=== PATIENT | female | born 1980 | race African-American/Black ===

== ENCOUNTER 2016-04-25 09:27 | Emergency (ER) | payer MEDICAID ==
[~2016-04-25] VITALS: Ht 165.1 cm; Wt 64.0 kg
[~2016-04-25 09:27] MED LIST: IBUP600 PO; Z.0.BCPILL PO
[2016-04-25 09:29] VITALS: BP 136/63; PULSE 80; RESP 16; TEMP 98.1; O2SAT 98
[2016-04-25] MEDS ORDERED: SODIUM CHLOR 0.9% 1000 ML INJ 1,000 ML IV SCH (10:14)
[2016-04-25] MEDS ORDERED: SODIUM CHLORIDE 0.9% FLUSH 5 ML FLUSH IVF PRN (10:15)
[2016-04-25] MEDS ORDERED: MORPHINE SULFATE 4 MG/ML INJ IV PUSH ONE (10:15)
--- NOTE | 2016-04-25 10:18 | PD ---
HPI Chief Complaint: Pain: Acute or Chronic Time Seen by Provider: 10:12 Travel History International Travel<30 days: No Contact w/Intl Traveler<30days: No Traveled to known affect area: No History of Present Illness HPI 35-year-old female here for evaluation of right lower quadrant and right thigh pain. The patient reports that she fell down some stairs about a month ago and has been experiencing pain in this area ever since. She reports that she went to [facility] where she received pain medication. History of ovarian cyst removal. She is currently on her menstrual period. No other abdominal surgeries. Pain is severe, constant, worse with movement and palpation. She had nausea and a few episodes of vomiting this morning. PFS Past Medical History Anemia: Yes Asthma: No Blood Disorders: No Anxiety: No Depression: No Heart Rhythm Problems: No Cancer: No Cardiovascular Problems: No High Cholesterol: No Chemotherapy: No Chest Pain: No Congestive Heart Failure: No COPD: No Diabetes: No Diminished Hearing: No Gastrointestinal Disorders: Yes (CHRONIC ABD PAIN) Glaucoma: No Genitourinary: No Hepatitis: No Hiatal Hernia: No Hypertension: Yes Immune Disorder: No Implanted Vascular Access Dvce: No Musculoskeletal: No Neurologic: No Psychiatric: No Reproductive: Yes (OVARIAN CYSTS, POLYCYSTIC OVARIES) Respiratory: No Immunizations Current: No Radiation Therapy: No Sleep Apnea: No Thyroid Disease: No PNEUMOCCOCAL Vaccine (Year): 2 ?: Not LMP: LAST WEEK : 5 Para: 4 Miscarriage: 1 Ectopic : No Ovarian Cysts: Yes (RIGHT OVARIAN CYST REMOVED) Tubal Ligation: Yes (2007) Past Surgical History Body Medical Devices: CYST Gynecologic Surgery: Yes (cervical ablation) Hysterectomy: Yes (PARTIAL) Other Surgery: No Social History Alcohol Use: No Tobacco Use: No Substance Use: Yes (MARIJUANA OCC) Allergies-Medications (Allergen,Severity, Reaction): Coded Allergies: No Known Allergies (Verified , 04/25/16) Reported Meds & Prescriptions Reported Meds & Active Scripts Active No Active Prescriptions or Reported Medications Review of Systems Except as stated in HPI: all other systems reviewed are Neg Physical Exam Narrative GENERAL: Well-developed, well-nourished, moderate distress secondary to pain. SKIN: Warm and dry. No rash. HEAD: Atraumatic. Normocephalic. EYES: Pupils equal and round. No scleral icterus. No injection or drainage. ENT: Mucous membranes pink and moist. NECK: Trachea midline. No JVD. CARDIOVASCULAR: Regular rate and rhythm. RESPIRATORY: No accessory muscle use. Clear to auscultation. Breath sounds equal bilaterally. GASTROINTESTINAL: Abdomen soft, nondistended. Moderate lower quadrant and suprapubic tenderness without peritoneal signs, rest of abdomen is soft and nontender. Normal bowel sounds. ENGROSSER: Exam performed in the presence of female nurse. Normal external genitalia. Normal cervix. Scant blood in vaginal vault coming from cervical os. No CMT. No uterine tenderness. No adnexal masses or tenderness. MUSCULOSKELETAL: No obvious deformities. No clubbing. No cyanosis. No edema. Normal range of motion in right thigh with mild tenderness to right anterior thigh. The rest of her joints and extremities are without deformity, without tenderness, with normal range of motion. NEUROLOGICAL: Awake and alert. No obvious cranial nerve deficits. Motor grossly within normal limits. Normal speech. PSYCHIATRIC: Appropriate mood and affect; insight and judgment normal. Data Data Last Documented VS Vital Signs Date Time Temp Pulse Resp B/P Pulse Ox O2 Delivery O2 Flow Rate FiO2 04/25/16 12:08 70 16 140/88 100 Room Air 04/25/16 09:29 98.1 Orders Beta Hcg (Quant/Titer) (04/25/16 10:14) Complete Blood Count With Diff (04/25/16 10:14) Comprehensive Metabolic Panel (04/25/16 10:14) Lipase (04/25/16 10:14) Prothrombin Time / Inr (Pt) (04/25/16 10:14) Act Partial Throm Time (Ptt) (04/25/16 10:14) Urinalysis - C+S If Indicated (04/25/16 10:14) Ct Abd/Pel W Iv Contrast(Rout) (04/25/16 10:14) Iv Access Insert/Monitor (04/25/16 10:14) Ecg Monitoring (04/25/16 10:14) Oximetry (04/25/16 10:14) Morphine Inj (Morphine Inj) (04/25/16 10:15) Sodium Chlor 0.9% 1000 Ml Inj (Ns 1000 M (04/25/16 10:14) Sodium Chloride 0.9% Flush (Ns Flush) (04/25/16 10:15) Ed Urine Pregnancytest Poc (04/25/16 10:14) Gc And Chlamydia Pcr (04/25/16 10:19) Wet Prep Profile (04/25/16 10:19) Us Pelvis Comp W Doppler (04/25/16 ) Iohexol 350 Inj (Omnipaque 350 Inj) (04/25/16 12:15) Labs Laboratory Tests Test 04/25/16 04/25/16 10:25 12:25 White Blood Count 3.4 TH/MM3 Red Blood Count 4.50 MIL/MM3 Hemoglobin 11.8 GM/DL Hematocrit 35.3 % Mean Corpuscular Volume 78.5 FL Mean Corpuscular Hemoglobin 26.2 PG Mean Corpuscular Hemoglobin 33.4 % Concent Red Cell Distribution Width 13.1 % Platelet Count 290 TH/MM3 Mean Platelet Volume 8.3 FL Neutrophils (%) (Auto) 41.1 % Lymphocytes (%) (Auto) 47.9 % Monocytes (%) (Auto) 9.8 % Eosinophils (%) (Auto) 0.4 % Basophils (%) (Auto) 0.8 % Neutrophils # (Auto) 1.4 TH/MM3 Lymphocytes # (Auto) 1.6 TH/MM3 Monocytes # (Auto) 0.3 TH/MM3 Eosinophils # (Auto) 0.0 TH/MM3 Basophils # (Auto) 0.0 TH/MM3 CBC Comment DIFF FINAL Differential Comment Prothrombin Time 10.7 SEC Prothromb Time International 1.0 RATIO Ratio Activated Partial 26.3 SEC Thromboplast Time Urine Color YELLOW Urine Turbidity HAZY Urine pH 7.0 Urine Specific [place] 1.026 Urine Protein TRACE mg/dL Urine Glucose (UA) NEG mg/dL Urine Ketones NEG mg/dL Urine Occult Blood MOD Urine Nitrite NEG Urine Bilirubin NEG Urine Urobilinogen LESS THAN 2.0 MG/DL Urine Leukocyte Esterase NEG Urine RBC 137 /hpf Urine WBC 4 /hpf Urine Squamous Epithelial 2 /hpf Cells Urine Amorphous Sediment RARE Urine Mucus FEW /lpf Microscopic Urinalysis Comment CULT NOT INDICATED Sodium Level 138 MEQ/L Potassium Level 3.5 MEQ/L Chloride Level 105 MEQ/L Carbon Dioxide Level 22.2 MEQ/L Anion Gap 11 MEQ/L Blood Urea Nitrogen 10 MG/DL Creatinine 0.82 MG/DL Estimat Glomerular Filtration 97 ML/MIN Rate Random Glucose 103 MG/DL Calcium Level 8.8 MG/DL Total Bilirubin 0.4 MG/DL Aspartate Amino Transf 10 U/L (AST/SGOT) Alanine Aminotransferase 15 U/L (ALT/SGPT) Alkaline Phosphatase 77 U/L Total Protein 7.5 GM/DL Albumin 4.0 GM/DL Lipase 78 U/L Human Chorionic Gonadotropin, LESS THAN 1 Quant MIU/ML Clue Cells (Wet Prep) NONE SEEN Vaginal Trichomonas (Wet Prep) NONE SEEN Vaginal Yeast (Wet Prep) NONE SEEN MDM Medical Decision Making Medical Screen Exam Complete: Yes Emergency Medical Condition: Yes Medical Record Reviewed: Yes Differential Diagnosis Appendicitis, colitis, ovarian cyst, ovarian torsion, PID, UTI, cystitis, musculoskeletal pain, , ectopic Narrative Course Initial vital signs show heart rate 80, blood pressure 136/63, pulse ox 98% on room air, oral temp of 98.1F. CBC shows WBC 3.4, hemoglobin 11.8, hematocrit 35.3, platelets 290 CMP is unremarkable. Lipase is 78. Beta hCG is negative. UA shows 137 rbc's, moderate occult blood monoxide suggestive of UTI. The patient is currently on her menstrual period. Wet prep is negative for yeast, negative for clue cells, negative for Trichomonas. Pelvic ultrasound: CONCLUSION: 1. No acute finding is identified to explain the pelvic pain. 2. Questionable 2.2 cm fibroid in the right uterus. However, the uterus is not well-visualized due to the under distention of the urinary bladder. 3. Normal appearance of the ovaries. CT abdomen pelvis: CONCLUSION: No acute finding is identified within the abdomen or pelvis. There is trace free fluid in the pelvis that is nonspecific but likely physiologic. Patient was given a dose of IV morphine and is feeling much better. She is resting comfortably. Her abdominal exam is benign. Pelvic exam is not suggestive of PID. She is stable for discharge home with outpatient follow-up with a primary care physician or a dentist private practice this week. She was informed on when to return to the emergency department. She verbalizes understanding and agreement with plan. Diagnosis Primary Impression: Chronic pelvic pain in female Additional Impression: Uterine fibroid Qualified Code: D25.9 - Uterine leiomyoma, unspecified location Referrals: Manager Of Environmental Services 3 days Primary Care Physician 3 days Additional Instructions: Follow-up with a primary care physician or dentist private practice this week. Return to the emergency room if worsening symptoms or any other concerns. Scripts No Active Prescriptions or Reported Meds Disposition: DISCHARGE HOME Condition: Stable Juarez Molina MD Apr 25, 2016 10:18
[2016-04-25 10:39] VITALS: O2SAT 100
[2016-04-25 10:40] VITALS: BP 153/94; PULSE 70; RESP 17; O2SAT 100
[2016-04-25 10:46] LABS: AUTOMATED NEUTROPHIL # 1.4 TH/MM3 (1.8-7.7); BASOPHIL % 0.8 % (0.0-2.0); EOSINOPHIL % 0.4 % (0.0-4.0); HEMATOCRIT 35.3 % (35.0-46.0); HEMO FLAGS DIFF FINAL; LYMPH % 47.9 % (9.0-44.0); LYMPHOCYTE # 1.6 TH/MM3 (1.0-4.8); MEAN CELL VOLUME 78.5 FL (80.0-100.0); MEAN CORPUSCULAR HEMOGLOBIN 26.2 PG (27.0-34.0); MEAN CORPUSCULAR HGB CONC 33.4 % (32.0-36.0); MONO % 9.8 % (0.0-8.0); NEUT % 41.1 % (16.0-70.0); PLATELET COUNT 290 TH/MM3 (150-450); RED CELL DISTRIBUTION WIDTH 13.1 % (11.6-17.2); WHITE BLOOD COUNT 3.4 TH/MM3 (4.0-11.0)
[2016-04-25 10:57] LABS: APTT (PATIENT) 26.3 SEC (24.3-30.1); PROTHROMBIN TIME - PATIENT 10.7 SEC (9.8-11.6)
[2016-04-25 11:03] LABS: BLOOD, URINE MOD (NEG); COMMENT (UR) CULT NOT INDICATED; CULTURE IF INDICATED CULT NOT INDICATED; GLUCOSE,URINE NEG (NEG); KETONE, URINE NEG (NEG); MUCUS URINE FEW /lpf (OCC); NITRITE,URINE NEG (NEG); SQUAMOUS EPITHELIAL CELL URINE 2 /hpf (0-5); URINE COLOR YELLOW (YELLW/STRAW)
[2016-04-25 11:11] LABS: ANION GAP 11 MEQ/L (5-15); AST (GOT) 10 U/L (15-37); BICARBONATE 22.2 MEQ/L (21.0-32.0); BLOOD UREA NITROGEN 10 MG/DL (7-18); CHLORIDE 105 MEQ/L (98-107); GLOMERULAR FILTRATION RATE 97 ML/MIN (>89); POTASSIUM 3.5 MEQ/L (3.5-5.1); SODIUM (NA) 138 MEQ/L (136-145)
[2016-04-25 11:17] LABS: ALKALINE PHOSPHATASE 77 U/L (45-117); ALT (GPT) 15 U/L (10-53); BETA HCG QUANT LESS THAN 1 MIU/ML (0-5); TOTAL BILIRUBIN ADULT 0.4 MG/DL (0.2-1.0)
[2016-04-25 12:08] VITALS: BP 140/88; PULSE 70; RESP 16; O2SAT 100
--- NOTE | 2016-04-25 12:10 | RADRPT ---
EXAM DATE/TIME: 04/25/2016 11:26 [facility] COMPARISON: US PELVIS - COMPLETE (PARTS RUNNER,NON-PREG), December 03, 2015, 12:27. INDICATIONS : Pelvic pain. MEDICAL HISTORY : Hypertension. Anemia. SURGICAL HISTORY : Tubal ligation. Cervical ablation. ENCOUNTER: Initial ACUITY: > 1 year PAIN SCORE: 3/10 LOCATION: Right pelvis MEASUREMENTS: UTERUS: 9.5 x 5.4 x 5.8 cm ENDOMETRIAL STRIPE: 15 mm RIGHT OVARY: 2.5 x 2.2 x 2.2 cm LEFT OVARY: 2.3 x 1.8 x 1.5 cm FINDINGS: UTERUS: Uterus is retroverted. There is a hypoechoic structure in the right mid uterine body measuring 2.2 cm . This was not visualized previously. RIGHT OVARY: Ovary contains no mass or significant cystic lesion. Small follicles are present. Blood flow is docu mented. LEFT OVARY: Ovary contains no mass or significant cystic lesion. Small follicles are present. Blood flow is docu mented. MISCELLANEOUS: There is trace free fluid in the pelvis. CONCLUSION: 1. No acute finding is identified to explain the pelvic pain. 2. Questionable 2.2 cm fibroid in the right uterus. However, the uterus is not well-visualized due to the under distention of the urinary bladder. 3. Normal appearance of the ovaries. Lacho Watkins MD on April 25, 2016 at 12:06 Board Certified Radiologist. This report was verified electronically.
[2016-04-25] MEDS ORDERED: IOHEXOL 350 MG/ML 10 ML VIAL (for RAD DIAG) IV ONE (12:15)
--- NOTE | 2016-04-25 12:22 | RADRPT ---
EXAM DATE/TIME: 04/25/2016 12:03 [facility] COMPARISON: CT ABDOMEN & PELVIS W CONTRAST, October 21, 2015, 4:35. INDICATIONS : Abdomen pain. IV CONTRAST: 95 cc Omnipaque 350 (iohexol) IV ORAL CONTRAST: No oral contrast ingested. RADIATION DOSE: 4.82 CTDIvol (mGy) MEDICAL HISTORY : Hypertension. SURGICAL HISTORY : Tubal ligation. Hysterectomy.Polycystic ovaries, cerical ablation. ENCOUNTER: Initial ACUITY: 1 day PAIN SCALE: 5/10 LOCATION: Abdomen TECHNIQUE: Volumetric scanning of the abdomen and pelvis was performed. Using automated exposure control and ad justment of the mA and/or kV according to patient size, radiation dose was kept as low as reasonably achievable to obtain optimal diagnostic quality images. FINDINGS: LOWER LUNGS: The visualized lower lungs are clear. LIVER: Homogeneous density without lesion. There is no dilation of the biliary tree. No calcified gallston es. SPLEEN: Normal size without lesion. PANCREAS: Within normal limits. KIDNEYS: Normal in size and shape. There is no mass, stone or hydronephrosis. ADRENAL GLANDS: Within normal limits. VASCULAR: There is no aortic aneurysm. BOWEL/MESENTERY: The stomach, small bowel, and colon demonstrate no acute abnormality. There is no free intraperitone al air. There is trace free fluid in the pelvis. Appendix is normal. ABDOMINAL WALL: Within normal limits. RETROPERITONEUM: There is no lymphadenopathy. BLADDER: No wall thickening or mass. REPRODUCTIVE: Within normal limits. INGUINAL: There is no lymphadenopathy or hernia. MUSCULOSKELETAL: Within normal limits for patient age. CONCLUSION: No acute finding is identified within the abdomen or pelvis. There is trace free fluid in the pelvis that is nonspecific but likely physiologic. Lacho Watkins MD on April 25, 2016 at 12:18 Board Certified Radiologist. This report was verified electronically.
[2016-04-25 13:24] VITALS: BP 141/89
[2016-04-25 17:01] LABS: CHLAMYDIA PCR NOT DETECTED (NOT DETECT); NEISSERIA PCR NOT DETECTED (NOT DETECT)
[2016-04-25] MEDS ORDERED: CYCL1TAB29 PO (21:08)
[2016-04-25] MEDS ORDERED: IBUP800T23 PO (21:08)
== END 2016-04-25 13:25 | disposition home or self-care (01) ==
LOC: NEPB 09:27 → NEPC 13:25
DX: R10.2 Pelvic and perineal pain (principal); G89.29 Other chronic pain; D25.9 Leiomyoma of uterus, unspecified; I10 Essential (primary) hypertension; Z91.81 History of falling
CPT/HCPCS: 74177; 76856; 80053; 81001; 83690; 84702; 84703; 85025; 85610; 85730; 87210; 87491; 87591; 93975; 96361; 96374; 99284; J2270; J7030; Q9967

== ENCOUNTER 2016-04-25 19:33 | Emergency (ER) | payer MEDICAID ==
[~2016-04-25] VITALS: Ht 165.1 cm; Wt 64.0 kg
[2016-04-25 19:34] VITALS: BP 179/89; PULSE 68; RESP 16; TEMP 98; O2SAT 100
[2016-04-25 19:57] VITALS: BP 170/106; PULSE 82; RESP 18; O2SAT 100
[2016-04-25] MEDS ORDERED: KETOROLAC TROMETHAMINE 30 MG/ML (IVP) VIAL IV PUSH ONE (20:15)
[2016-04-25] MEDS ORDERED: ORPHENADRINE INJ 60 MG/2 ML AMP IV ONE (20:15)
--- NOTE | 2016-04-25 20:25 | PD ---
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 Patient was in the emergency department earlier today and had a full workup performed. She states that she was not given any prescription for pain medication at home and has presented back to the emergency department for the pain. She states her pain is a 10 out of 10 described as aching and shooting. She denies any injury or trauma. She denies any new complaints. PFSH Past Medical History Anemia: Yes Asthma: No Blood Disorders: No Anxiety: No Depression: No Heart Rhythm Problems: No Cancer: No Cardiovascular Problems: No High Cholesterol: No Chemotherapy: No Chest Pain: No Congestive Heart Failure: No COPD: No Diabetes: No Diminished Hearing: No Gastrointestinal Disorders: Yes (CHRONIC ABD PAIN) Glaucoma: No Genitourinary: No Hepatitis: No Hiatal Hernia: No Hypertension: Yes Immune Disorder: No Implanted Vascular Access Dvce: No Musculoskeletal: No Neurologic: No Psychiatric: No Reproductive: Yes (OVARIAN CYSTS, POLYCYSTIC OVARIES) Respiratory: No Immunizations Current: No Radiation Therapy: No Sleep Apnea: No Thyroid Disease: No PNEUMOCCOCAL Vaccine (Year): 2 ?: Not LMP: 04/25/16 : 5 Para: 4 Miscarriage: 1 Ectopic : No Ovarian Cysts: Yes (RIGHT OVARIAN CYST REMOVED) Tubal Ligation: Yes Past Surgical History Body Medical Devices: CYST Gynecologic Surgery: Yes (cervical ablation) Hysterectomy: Yes (PARTIAL) Other Surgery: No Social History Alcohol Use: No Tobacco Use: No Substance Use: Yes (MARIJUANA OCC) Allergies-Medications (Allergen,Severity, Reaction): Coded Allergies: No Known Allergies (Verified , 04/25/16) Reported Meds & Prescriptions Reported Meds & Active Scripts Active No Active Prescriptions or Reported Medications Review of Systems Except as stated in HPI: all other systems reviewed are Neg Musculoskeletal: Positive: Myalgias, Cramping, Pain Physical Exam Narrative GENERAL: Well-developed, well-nourished, alert female. Appears uncomfortable, in no acute distress. SKIN: Warm and dry. No rash or obvious lesions. HEAD: Atraumatic. Normocephalic. EYES: Pupils equal and round. No scleral icterus. No injection or drainage. ENT: No nasal bleeding or discharge. Mucous membranes pink and moist. NECK: Trachea midline. No JVD. CARDIOVASCULAR: Regular rate and rhythm. No murmur appreciated. RESPIRATORY: No accessory muscle use. Clear to auscultation. Breath sounds equal bilaterally. GASTROINTESTINAL: Abdomen soft, non-tender, nondistended. Hepatic and splenic margins not palpable. MUSCULOSKELETAL: No obvious deformities. No clubbing. No cyanosis. No edema. Tender to palpation in right upper thigh/right groin, no edema, erythema noted. Full range of motion in all 4 extremities. 5/5 muscle strength in bilateral lower extremities. Patient is neurovascularly intact. NEUROLOGICAL: Awake and alert. No obvious cranial nerve deficits. Motor grossly within normal limits. Normal speech. PSYCHIATRIC: Appropriate mood and affect; insight and judgment normal. Data Data Last Documented VS Vital Signs Date Time Temp Pulse Resp B/P Pulse Ox O2 Delivery O2 Flow Rate FiO2 04/25/16 19:57 82 18 170/106 100 Room Air 04/25/16 19:34 98.0 Orders Ketorolac Inj (Toradol Inj) (04/25/16 20:15) Orphenadrine Inj (Norflex Inj) (04/25/16 20:15) Ondansetron Inj (Zofran Inj) (04/25/16 20:45) MDM Medical Decision Making Medical Screen Exam Complete: Yes Emergency Medical Condition: Yes Medical Record Reviewed: Yes Interpretation(s) Vital Signs Date Time Temp Pulse Resp B/P Pulse Ox O2 Delivery O2 Flow Rate FiO2 04/25/16 19:57 82 18 170/106 100 Room Air 04/25/16 19:34 98.0 68 16 179/89 100 Differential Diagnosis Muscle strain versus spasm versus discogenic pain versus other Narrative Course Patient is a 35-year-old female presenting to the emergency department for evaluation of right groin pain. Patient was seen and evaluated in the emergency department earlier today. She had a CT of the abdomen and pelvis which was negative, pelvic ultrasound showed a questionable 2.2 cm fibroid in the right uterus, the ovaries appeared normal. CBC was unremarkable Chemistry was unremarkable Urinalysis is unremarkable, did show moderate occult blood however patient is currently menstruating. Chlamydia and gonorrhea were both negative, wet prep was negative for clue cells , Trichomonas, yeast. Patient was given Toradol and Norflex now, will reassess. Patient is encouraged to follow-up with her primary doctor. She is encouraged to return to emergency department for any new or worsening symptoms. Patient was reassured at this time that there was no clinical findings to support her pain. She does appear to have pain that seems musculoskeletal in nature, cramping. She is encouraged to apply warm moist heat to the affected area, continue range of motion exercises, and follow up with her primary doctor. Patient is stable for discharge. Diagnosis Primary Impression: Right groin pain Additional Impression: Muscle ache of extremity Referrals: Primary Care Physician Patient Instructions: General Instructions, Groin Pain (ED), Muscle Spasm (ED) , Muscle Strain (GEN) Additional Instructions: Follow-up with your primary doctor Continue range of motion exercises, apply warm heat to the effected area, avoid bed rest Take medications as directed Return to emergency department for any new or worsening symptoms Med/Other Pt SpecificInfo: Prescription(s) given Scripts Cyclobenzaprine (Flexeril)10 Mg Tab10 Mg PO TID PRN (MUSCLE SPASM) 10 Days Ref 0 Prov:Nita Sunshine 04/25/16 Ibuprofen 800 Mg Odi821 Mg PO Q6HR PRN (PAIN) #40 TAB Ref 0 Prov:Nita Sunshine 04/25/16 Disposition: 01 DISCHARGE HOME Condition: Stable Nita Sunshine Apr 25, 2016 20:25
[2016-04-25] MEDS ORDERED: ONDANSETRON HCL 4 MG/2 ML VIAL IV PUSH ONE (20:45)
[2016-04-25] MEDS ORDERED: CYCL1TAB29 PO (21:08)
[2016-04-25] MEDS ORDERED: IBUP800T23 PO (21:08)
== END 2016-04-25 21:40 | disposition home or self-care (01) ==
LOC: NEPE 19:33
DX: R10.31 Right lower quadrant pain (principal); M79.1 Myalgia; M79.604 Pain in right leg; I10 Essential (primary) hypertension
CPT/HCPCS: 96374; 96375; 99283; J1885; J2360; J2405

== ENCOUNTER 2016-04-27 13:13 | Emergency (ER) | payer MEDICAID ==
[~2016-04-27 13:13] MED LIST changes: +CYCL1TAB29 PO; -IBUP600 PO; +IBUP800T23 PO; -Z.0.BCPILL PO
[2016-04-27 13:42] VITALS: BP 176/108; PULSE 24; RESP 24; TEMP 98.1; O2SAT 94
== END 2016-04-27 15:24 | disposition left against medical advice (07) ==
LOC: NETRI 13:13
DX: M54.9 Dorsalgia, unspecified (principal)
CPT/HCPCS: 99281; 99283

== ENCOUNTER 2016-08-16 07:12 | Emergency (ER) | payer MEDICAID ==
[2016-08-16 07:14] VITALS: BP 162/99; PULSE 80; RESP 28; TEMP 97.7; O2SAT 98
[2016-08-16] MEDS ORDERED: SODIUM CHLOR 0.9% 1000 ML INJ 1,000 ML IV ONE (07:25)
--- NOTE | 2016-08-16 07:28 | PD ---
HPI Chief Complaint: Flank/Kidney Pain Time Seen by Provider: 07:25 Travel History International Travel<30 days: No Contact w/Intl Traveler<30days: No Traveled to known affect area: No History of Present Illness HPI c/o sharp, rt flank to rlq area pain, 9/10, onset since last night, got worse over last 2hrs, per patient she has had a "uterine ablation/tubal ligation and a partial hyst so i am NOT "...no alleviating/aggravating factors PFSH Past Medical History Anemia: Yes Asthma: No Blood Disorders: No Anxiety: No Depression: No Heart Rhythm Problems: No Cancer: No Cardiovascular Problems: No High Cholesterol: No Chemotherapy: No Chest Pain: No Congestive Heart Failure: No COPD: No Diabetes: No Diminished Hearing: No Gastrointestinal Disorders: Yes (CHRONIC ABD PAIN) Glaucoma: No Genitourinary: No Hepatitis: No Hiatal Hernia: No Hypertension: Yes Immune Disorder: No Implanted Vascular Access Dvce: No Musculoskeletal: No Neurologic: No Psychiatric: No Reproductive: Yes (OVARIAN CYSTS, POLYCYSTIC OVARIES) Respiratory: No Immunizations Current: No Radiation Therapy: No Sleep Apnea: No Thyroid Disease: No PNEUMOCCOCAL Vaccine (Year): 2 ?: Not : 5 Para: 4 Miscarriage: 1 Ectopic : No Ovarian Cysts: Yes (RIGHT OVARIAN CYST REMOVED) Tubal Ligation: Yes Past Surgical History Body Medical Devices: CYST Gynecologic Surgery: Yes (cervical ablation) Hysterectomy: Yes Other Surgery: No Social History Alcohol Use: No Tobacco Use: No Substance Use: Yes (MARIJUANA OCC) Allergies-Medications (Allergen,Severity, Reaction): Coded Allergies: No Known Allergies (Verified , 04/25/16) Reported Meds & Prescriptions Reported Meds & Active Scripts Active No Active Prescriptions or Reported Medications Review of Systems Except as stated in HPI: all other systems reviewed are Neg Gastrointestinal: Positive: Nausea, Abdominal Pain Genitourinary: Positive: Flank Pain Physical Exam Narrative GENERAL: SKIN: Warm and dry. HEAD: Atraumatic. Normocephalic. EYES: Pupils equal and round. No scleral icterus. No injection or drainage. ENT: No nasal bleeding or discharge. Mucous membranes pink and moist. NECK: Trachea midline. No JVD. CARDIOVASCULAR: Regular rate and rhythm. RESPIRATORY: No accessory muscle use. Clear to auscultation. Breath sounds equal bilaterally. GASTROINTESTINAL: Abdomen soft, non-tender, nondistended. Hepatic and splenic margins not palpable. MUSCULOSKELETAL: Extremities without clubbing, cyanosis, or edema. No obvious deformities. NEUROLOGICAL: Awake and alert. No obvious cranial nerve deficits. Motor grossly within normal limits. Five out of 5 muscle strength in the arms and legs. Normal speech. PSYCHIATRIC: Appropriate mood and affect; insight and judgment normal. Data Data Last Documented VS Vital Signs Date Time Temp Pulse Resp B/P Pulse Ox O2 Delivery O2 Flow Rate FiO2 08/16/16 07:14 97.7 80 28 162/99 98 Orders Complete Blood Count With Diff (08/16/16 07:25) Comprehensive Metabolic Panel (08/16/16 07:25) Urinalysis - C+S If Indicated (08/16/16 07:25) Ct Abd/Pel W/O Iv Contrast (08/16/16 07:25) Ecg Monitoring (08/16/16 07:25) Iv Access Insert/Monitor (08/16/16 07:25) Ketorolac Inj (Toradol Inj) (08/16/16 07:30) Sodium Chloride 0.9% Flush (Ns Flush) (08/16/16 07:30) Sodium Chlor 0.9% 1000 Ml Inj (Ns 1000 M (08/16/16 07:25) Ondansetron Inj (Zofran Inj) (08/16/16 07:45) Hydromorphone Pf Inj (Dilaudid Pf Inj) (08/16/16 08:00) Labs Laboratory Tests Test 08/16/16 08/16/16 07:52 08:40 White Blood Count 6.0 TH/MM3 Red Blood Count 4.66 MIL/MM3 Hemoglobin 11.8 GM/DL Hematocrit 36.4 % Mean Corpuscular Volume 78.1 FL Mean Corpuscular Hemoglobin 25.4 PG Mean Corpuscular Hemoglobin 32.5 % Concent Red Cell Distribution Width 13.3 % Platelet Count 254 TH/MM3 Mean Platelet Volume 8.8 FL Neutrophils (%) (Auto) 71.1 % Lymphocytes (%) (Auto) 22.8 % Monocytes (%) (Auto) 5.7 % Eosinophils (%) (Auto) 0.1 % Basophils (%) (Auto) 0.3 % Neutrophils # (Auto) 4.2 TH/MM3 Lymphocytes # (Auto) 1.4 TH/MM3 Monocytes # (Auto) 0.3 TH/MM3 Eosinophils # (Auto) 0.0 TH/MM3 Basophils # (Auto) 0.0 TH/MM3 CBC Comment DIFF FINAL Differential Comment Sodium Level 137 MEQ/L Potassium Level 3.4 MEQ/L Chloride Level 104 MEQ/L Carbon Dioxide Level 21.6 MEQ/L Anion Gap 11 MEQ/L Blood Urea Nitrogen 18 MG/DL Creatinine 0.79 MG/DL Estimat Glomerular Filtration 101 ML/MIN Rate Random Glucose 165 MG/DL Calcium Level 8.9 MG/DL Total Bilirubin 0.4 MG/DL Aspartate Amino Transf 15 U/L (AST/SGOT) Alanine Aminotransferase 18 U/L (ALT/SGPT) Alkaline Phosphatase 70 U/L Total Protein 7.4 GM/DL Albumin 4.0 GM/DL Urine Color YELLOW Urine Turbidity HAZY Urine pH 7.0 Urine Specific [place] 1.028 Urine Protein TRACE mg/dL Urine Glucose (UA) NEG mg/dL Urine Ketones NEG mg/dL Urine Occult Blood SMALL Urine Nitrite NEG Urine Bilirubin NEG Urine Urobilinogen LESS THAN 2.0 MG/DL Urine Leukocyte Esterase NEG Urine RBC 22 /hpf Urine WBC 1 /hpf Urine Squamous Epithelial <1 /hpf Cells Urine Amorphous Sediment OCC Urine Mucus FEW /lpf Microscopic Urinalysis Comment CULT NOT INDICATED MDM Medical Decision Making Medical Screen Exam Complete: Yes Emergency Medical Condition: Yes Medical Record Reviewed: Yes Differential Diagnosis renal stone v appy v ectopic Narrative Course CT IS NEG FOR RENAL STONE NOR APPY, NOR COLITIS PRESENT....UA C/W POOR COLLECTION TECHNIQUE, BUT NO UTI Diagnosis Primary Impression: CHRONIC ABDOMINAL PAIN (POSSIBLE ENDOMETRIOSIS) Patient Instructions: Endometriosis (ED), General Instructions, Narcotic given in the ED Med/Other Pt SpecificInfo: Prescription(s) given Scripts Ondansetron Odt (Zofran Odt)4 Mg Tab4 Mg SL Q6HR PRN (Nausea/Vomiting) #12 TAB Prov:Antonio Lewis MD 08/16/16 Tramadol (Ultram)50 Mg Tab50 Mg PO Q4H PRN (PAIN) #28 TAB Prov:Antonio Lewis MD 08/16/16 Disposition: 01 DISCHARGE HOME Condition: Stable Antonio Lewis MD Aug 16, 2016 07:28
[2016-08-16] MEDS ORDERED: KETOROLAC TROMETHAMINE 30 MG/ML (IVP) VIAL IVP ONE (07:30)
[2016-08-16] MEDS ORDERED: SODIUM CHLORIDE 0.9% FLUSH 10 ML FLUSH IVF PRN (07:30)
[2016-08-16] MEDS ORDERED: ONDANSETRON HCL 4 MG/2 ML VIAL IV PUSH ONE (07:45)
[2016-08-16] MEDS ORDERED: HYDROmorphone HCL PF 1 MG/ML VIAL IV PUSH ONE (08:00)
--- NOTE | 2016-08-16 08:01 | RADRPT ---
EXAM DATE/TIME: 08/16/2016 07:47 [facility] COMPARISON: CT ABDOMEN & PELVIS W CONTRAST, April 25, 2016, 12:03. INDICATIONS : Right flank pain today. ORAL CONTRAST: No oral contrast ingested. RADIATION DOSE: 3.94 CTDIvol (mGy) MEDICAL HISTORY : Hypertension. ovarian cyst SURGICAL HISTORY : Hysterectomy. ENCOUNTER: Initial ACUITY: 1 day PAIN SCALE: 8/10 LOCATION: Right flank TECHNIQUE: Volumetric scanning of the abdomen and pelvis was performed. Using automated exposure control and ad justment of the mA and/or kV according to patient size, radiation dose was kept as low as reasonably achievable to obtain optimal diagnostic quality images. DICOM format image data is available electro nically for review and comparison. The lack of IV contrast limits the diagnosis for certain organ pat hology. FINDINGS: LOWER LUNGS: The visualized lower lungs are clear. LIVER: Homogeneous density without lesion. There is no dilation of the biliary tree. No calcified gallston es. SPLEEN: Normal size without lesion. PANCREAS: Within normal limits. KIDNEYS: Normal in size and shape. There is no mass, stone, or hydronephrosis. ADRENAL GLANDS: Within normal limits. VASCULAR: There is no aortic aneurysm. BOWEL/MESENTERY: The stomach, small bowel, and colon demonstrate no acute abnormality. There is no free intraperitone al air or fluid. ABDOMINAL WALL: Within normal limits. RETROPERITONEUM: There is no lymphadenopathy. BLADDER: No wall thickening or mass. Tiny calcification in the anterior urinary bladder wall. Stable compared to the prior study. REPRODUCTIVE: Within normal limits. There is a trace of fluid in the cul-de-sac. No significant change compared to the prior exam. INGUINAL: There is no lymphadenopathy or hernia. MUSCULOSKELETAL: Within normal limits for patient age. CONCLUSION: 1. No calcified renal stones or hydronephrosis. 2. Trace of fluid in the cul-de-sac. 3. No significant change compared to the prior exam. Chepe Lopez MD on August 16, 2016 at 7:55 Board Certified Radiologist. This report was verified electronically.
[2016-08-16 08:06] LABS: AUTOMATED NEUTROPHIL # 4.2 TH/MM3 (1.8-7.7); BASOPHIL % 0.3 % (0.0-2.0); EOSINOPHIL % 0.1 % (0.0-4.0); HEMATOCRIT 36.4 % (35.0-46.0); HEMO FLAGS DIFF FINAL; LYMPH % 22.8 % (9.0-44.0); LYMPHOCYTE # 1.4 TH/MM3 (1.0-4.8); MEAN CELL VOLUME 78.1 FL (80.0-100.0); MEAN CORPUSCULAR HEMOGLOBIN 25.4 PG (27.0-34.0); MEAN CORPUSCULAR HGB CONC 32.5 % (32.0-36.0); MONO % 5.7 % (0.0-8.0); NEUT % 71.1 % (16.0-70.0); PLATELET COUNT 254 TH/MM3 (150-450); RED BLOOD COUNT 4.66 MIL/MM3 (4.00-5.30); RED CELL DISTRIBUTION WIDTH 13.3 % (11.6-17.2)
[2016-08-16 08:20] LABS: ANION GAP 11 MEQ/L (5-15); AST (GOT) 15 U/L (15-37); BICARBONATE 21.6 MEQ/L (21.0-32.0); BLOOD UREA NITROGEN 18 MG/DL (7-18); CHLORIDE 104 MEQ/L (98-107); GLOMERULAR FILTRATION RATE 101 ML/MIN (>89); POTASSIUM 3.4 MEQ/L (3.5-5.1); SODIUM (NA) 137 MEQ/L (136-145)
[2016-08-16 08:21] LABS: ALT (GPT) 18 U/L (10-53)
[2016-08-16 08:23] LABS: ALKALINE PHOSPHATASE 70 U/L (45-117); TOTAL BILIRUBIN ADULT 0.4 MG/DL (0.2-1.0)
[2016-08-16 09:31] LABS: BLOOD, URINE SMALL (NEG); COMMENT (UR) CULT NOT INDICATED; CULTURE IF INDICATED CULT NOT INDICATED; GLUCOSE,URINE NEG (NEG); KETONE, URINE NEG (NEG); MUCUS URINE FEW /lpf (OCC); NITRITE,URINE NEG (NEG); SQUAMOUS EPITHELIAL CELL URINE <1 /hpf (0-5); URINE COLOR YELLOW (YELLW/STRAW)
[2016-08-16] MEDS ORDERED: ULTR50TA5 PO (09:45)
[2016-08-16] MEDS ORDERED: ZOFR4TAB3 SL (09:45)
== END 2016-08-16 10:27 | disposition home or self-care (01) ==
LOC: NEPC 07:12
DX: R10.9 Unspecified abdominal pain (principal); G89.29 Other chronic pain; I10 Essential (primary) hypertension; Z86.2 Personal history of diseases of the blood and blood-forming organs and certain disorders involving the immune mechanism; Z87.19 Personal history of other diseases of the digestive system; Z87.42 Personal history of other diseases of the female genital tract
CPT/HCPCS: 74176; 80053; 81001; 85025; 96361; 96374; 96375; 99285; J1170; J1885; J2405; J7030

== ENCOUNTER 2017-01-06 10:06 | Emergency (ER) | payer MEDICAID ==
[~2017-01-06] VITALS: Ht 165.1 cm; Wt 62.0 kg
[~2017-01-06 10:06] MED LIST changes: -CYCL1TAB29 PO; -IBUP800T23 PO; +TRAM50 PO; +ZOFR4TAB3 SL
[2017-01-06 10:10] VITALS: BP 153/90; PULSE 80; RESP 16; TEMP 97.8; O2SAT 100
--- NOTE | 2017-01-06 10:40 | PD ---
HPI Chief Complaint: Chest Pain Time Seen by Provider: 10:34 Travel History International Travel<30 days: No Contact w/Intl Traveler<30days: No Traveled to known affect area: No History of Present Illness HPI Patient is a 36-year-old female with a history of high blood pressure and chronic vaginal bleeding presents emergency department for evaluation of syncopal episode. Patient states she was at work and is very stressed at work because her colleagues often argue with her, she states that she was in an argument with one of her coworkers today and passed out 4 times. She states she 's been having pain on the right side of her chest as well as underneath her shoulder blade since this happened. States she's been bleeding for 4 months even know she had an ablation. Denies any shortness of breath nausea vomiting headaches neck pain abdominal pain pelvic pain. Denies history of congestive heart failure. Symptoms are moderate, intermittent. PFSH Past Medical History Anemia: Yes Asthma: No Blood Disorders: No Anxiety: No Depression: No Heart Rhythm Problems: No Cancer: No Cardiovascular Problems: No High Cholesterol: No Chemotherapy: No Chest Pain: No Congestive Heart Failure: No COPD: No Diabetes: No Diminished Hearing: No Gastrointestinal Disorders: Yes (CHRONIC ABD PAIN) Glaucoma: No Genitourinary: No Hepatitis: No Hiatal Hernia: No Hypertension: Yes Immune Disorder: No Implanted Vascular Access Dvce: No Musculoskeletal: No Neurologic: No Psychiatric: No Reproductive: Yes (OVARIAN CYSTS, POLYCYSTIC OVARIES) Respiratory: No Immunizations Current: No Radiation Therapy: No Sleep Apnea: No Thyroid Disease: No Tetanus Vaccination: > 5 Years Influenza Vaccination: Yes PNEUMOCCOCAL Vaccine (Year): 2 ?: Not LMP: 01/06/17 : 5 Para: 4 Miscarriage: 1 Ectopic : No Ovarian Cysts: Yes (RIGHT OVARIAN CYST REMOVED) Tubal Ligation: Yes Past Surgical History Body Medical Devices: CYST Gynecologic Surgery: Yes (cervical ablation) Hysterectomy: Yes (partial) Other Surgery: No Social History Alcohol Use: No Tobacco Use: Yes Substance Use: Yes (MARIJUANA OCC) Allergies-Medications (Allergen,Severity, Reaction): Coded Allergies: No Known Allergies (Verified Adverse Reaction, Unknown, 01/06/17) Reported Meds & Prescriptions Reported Meds & Active Scripts Active Flexeril (Cyclobenzaprine HCl) 10 Mg Tab 10 Mg PO TID Review of Systems Except as stated in HPI: all other systems reviewed are Neg Physical Exam Narrative GENERAL: Well-developed well-nourished, quite the right side of her chest. SKIN: Focused skin assessment warm/dry. HEAD: Atraumatic. Normocephalic. EYES: Pupils equal and round. No scleral icterus. No injection or drainage. ENT: No nasal bleeding or discharge. Mucous membranes pink and moist. NECK: Trachea midline. No JVD. CARDIOVASCULAR: Regular rate and rhythm. No murmur appreciated. 2+ bilateral equal pulses in all 4 extremities. RESPIRATORY: No accessory muscle use. Clear to auscultation. Breath sounds equal bilaterally. GASTROINTESTINAL: Abdomen soft, non-tender, nondistended. Hepatic and splenic margins not palpable. MUSCULOSKELETAL: No obvious deformities. No clubbing. No cyanosis. No edema. Right shoulder has minimal tenderness over the scapula, no bony tenderness, full range of motion was demonstrated of the right upper extremity with tenderness in abduction of the shoulder. Pulse motor and sensory intact distally in all 4 extremities.. NEUROLOGICAL: Awake and alert. No obvious cranial nerve deficits. Motor grossly within normal limits. Normal speech. PSYCHIATRIC: Appropriate mood and affect; insight and judgment normal. Data Data Last Documented VS Orders Orders Basic Metabolic Panel (Bmp) (01/06/17 10:52) Ckmb (Isoenzyme) Profile (01/06/17 10:52) Complete Blood Count With Diff (01/06/17 10:52) Prothrombin Time / Inr (Pt) (01/06/17 10:52) Act Partial Throm Time (Ptt) (01/06/17 10:52) Troponin I (01/06/17 10:52) Chest, Single Ap (01/06/17 10:52) Ecg Monitoring (01/06/17 10:52) Iv Access Insert/Monitor (01/06/17 10:52) Oximetry (01/06/17 10:52) Oxygen Administration (01/06/17 10:52) Sodium Chloride 0.9% Flush (Ns Flush) (01/06/17 11:00) Ed Urine Pregnancytest Poc (01/06/17 10:52) CKMB (01/06/17 10:55) CKMB% (01/06/17 10:55) Electrocardiogram (01/06/17 10:21) Ed Discharge Order (01/06/17 12:27) Labs Laboratory Tests Test 01/06/17 10:55 White Blood Count 3.5 TH/MM3 Red Blood Count 4.76 MIL/MM3 Hemoglobin 12.4 GM/DL Hematocrit 38.4 % Mean Corpuscular Volume 80.6 FL Mean Corpuscular Hemoglobin 26.1 PG Mean Corpuscular Hemoglobin Concent 32.4 % Red Cell Distribution Width 13.2 % Platelet Count 262 TH/MM3 Mean Platelet Volume 8.7 FL Neutrophils (%) (Auto) 40.1 % Lymphocytes (%) (Auto) 49.2 % Monocytes (%) (Auto) 9.4 % Eosinophils (%) (Auto) 0.6 % Basophils (%) (Auto) 0.7 % Neutrophils # (Auto) 1.4 TH/MM3 Lymphocytes # (Auto) 1.7 TH/MM3 Monocytes # (Auto) 0.3 TH/MM3 Eosinophils # (Auto) 0.0 TH/MM3 Basophils # (Auto) 0.0 TH/MM3 CBC Comment DIFF FINAL Differential Comment Prothrombin Time 10.7 SEC Prothromb Time International Ratio 1.0 RATIO Activated Partial Thromboplast Time 25.7 SEC Blood Urea Nitrogen 16 MG/DL Creatinine 0.85 MG/DL Random Glucose 93 MG/DL Calcium Level 9.2 MG/DL Sodium Level 138 MEQ/L Potassium Level 3.8 MEQ/L Chloride Level 108 MEQ/L Carbon Dioxide Level 21.0 MEQ/L Anion Gap 9 MEQ/L Estimat Glomerular Filtration Rate 92 ML/MIN Total Creatine Kinase 175 U/L Creatine Kinase MB 1.3 NG/ML Troponin I LESS THAN 0.02 NG/ML MDM Medical Decision Making Medical Screen Exam Complete: Yes Emergency Medical Condition: Yes Differential Diagnosis ACS unlikely, stress reaction, syncopal episode, anemia. Narrative Course Patient roomed in emergency department after a syncopal episode, complaining of right-sided chest pain which is distractible from. Basic workup is negative here in emergency department, she seems very low risk for ACS or sinister cause of her syncopal episode today. Discussed need follow-up with a primary care physician or the [facility]. Discussed return to ED criteria. She stable for discharge. Diagnosis Primary Impression: Syncope Additional Impression: Right shoulder strain Departure Forms: Tests/Procedures, Work Release Enter return to work date: Jan 10, 2017 Additional Instructions: Ibuprofen 200mg orally every 6 hours for 5 days. Ice 20 minutes at a time for at least 3 times/day. Med/Other Pt SpecificInfo: Prescription(s) given Scripts Cyclobenzaprine (Flexeril) 10 Mg Tab 10 MG PO TID for Muscle Spasm, #20 TAB 0 Refills Prov: Jose A Moore MD 01/06/17 Disposition: 01 DISCHARGE HOME Condition: Stable Jose A Moore MD Jan 06, 2017 10:40
[2017-01-06 10:56] VITALS: RESP 18; O2SAT 98
[2017-01-06] MEDS ORDERED: SODIUM CHLORIDE 0.9% FLUSH 10 ML FLUSH IVF PRN (11:00)
[2017-01-06 11:10] VITALS: BP 148/85; PULSE 68; RESP 17; TEMP 97.8; O2SAT 99
[2017-01-06 11:12] LABS: AUTOMATED NEUTROPHIL # 1.4 TH/MM3 (1.8-7.7); BASOPHIL % 0.7 % (0.0-2.0); EOSINOPHIL % 0.6 % (0.0-4.0); HEMATOCRIT 38.4 % (35.0-46.0); HEMO FLAGS DIFF FINAL; LYMPH % 49.2 % (9.0-44.0); LYMPHOCYTE # 1.7 TH/MM3 (1.0-4.8); MEAN CELL VOLUME 80.6 FL (80.0-100.0); MEAN CORPUSCULAR HEMOGLOBIN 26.1 PG (27.0-34.0); MEAN CORPUSCULAR HGB CONC 32.4 % (32.0-36.0); MONO % 9.4 % (0.0-8.0); NEUT % 40.1 % (16.0-70.0); PLATELET COUNT 262 TH/MM3 (150-450); RED BLOOD COUNT 4.76 MIL/MM3 (4.00-5.30); RED CELL DISTRIBUTION WIDTH 13.2 % (11.6-17.2); WHITE BLOOD COUNT 3.5 TH/MM3 (4.0-11.0)
[2017-01-06 11:21] LABS: APTT (PATIENT) 25.7 SEC (24.3-30.1); PROTHROMBIN TIME - PATIENT 10.7 SEC (9.8-11.6)
[2017-01-06 11:30] LABS: ANION GAP 9 MEQ/L (5-15); BLOOD UREA NITROGEN 16 MG/DL (7-18); CHLORIDE 108 MEQ/L (98-107); GLOMERULAR FILTRATION RATE 92 ML/MIN (>89); POTASSIUM 3.8 MEQ/L (3.5-5.1); SODIUM (NA) 138 MEQ/L (136-145)
[2017-01-06 11:34] LABS: CREATINE KINASE 175 U/L (26-192)
--- NOTE | 2017-01-06 11:34 | RADRPT ---
EXAM DATE/TIME: 01/06/2017 11:18 [facility] COMPARISON: No previous studies available for comparison. INDICATIONS : Chest pain. Patient states she fainted. MEDICAL HISTORY : Hypertension. SURGICAL HISTORY : Hysterectomy. ENCOUNTER: Initial ACUITY: 1 day PAIN SCORE: 0/10 LOCATION: Bilateral chest FINDINGS: A single view of the chest demonstrates the lungs to be symmetrically aerated without evidence of mas s, infiltrate or effusion. The cardiomediastinal contours are unremarkable. Osseous structures are intact. CONCLUSION: Normal examination. Alden Perdue Jr., MD on January 06, 2017 at 11:32 Board Certified Radiologist. This report was verified electronically.
[2017-01-06 11:47] LABS: CKMB 1.3 NG/ML (0.5-3.6)
[2017-01-06] MEDS ORDERED: CYCL10TA PO (12:25)
[2017-01-06 12:50] VITALS: BP 130/81; PULSE 76; RESP 16; TEMP 97.8; O2SAT 99
--- NOTE | 2017-01-06 18:19 | EKG ---
Date Performed: 01/06/2017 Time Performed: 10:21:04 PTAGE: 36 years EKG: Sinus rhythm NORMAL ECG NO PREVIOUS TRACING DOCTOR: Radha Lee Interpretating Date/Time 01/06/2017 18:17:29
== END 2017-01-06 13:00 | disposition home or self-care (01) ==
LOC: NEPE 10:06
DX: R55 Syncope and collapse (principal); S46.911A Strain of unspecified muscle, fascia and tendon at shoulder and upper arm level, right arm, initial encounter; X58.XXXA Exposure to other specified factors, initial encounter; I10 Essential (primary) hypertension; D64.9 Anemia, unspecified
CPT/HCPCS: 71010; 80048; 82550; 82552; 84484; 84703; 85025; 85610; 85730; 93005; 99285